=== PATIENT | female | born 1995 | race Hispanic/Latino ===

== ENCOUNTER 2024-10-09 09:04 | Emergency (ER) | payer OTHER, SELFPAY ==
[2024-10-09 09:21] VITALS: BP 119/62
[2024-10-09 09:33] VITALS: BMI 36.3
[2024-10-09 10:02] LABS: % Basophils 0.3 % (0-2); % Eosinophils 0.3 % (0-6); % Immature Granulocytes 0.3 % (0-0.5); % Lymphocytes 37.8 % (20.5-51.1); % Neutrophils 51.3 % (42.2-75.2); Absolute Lymphocytes 2.5 10^3/uL (1.2-3.4); Absolute Monocytes 0.7 10^3/uL (0.1-0.6); Absolute Neutrophils 3.3 10^3/uL (1.4-6.5); Hematocrit 40.9 % (37.0-47.0); Hemoglobin 13.9 g/dL (12.0-16.0); Mean Corpuscular Hgb 30.8 pg (27.0-31.0); Mean Corpuscular Volume 90.5 fL (81.0-99.0); Mean Platelet Volume 11.1 fL (7.4-10.4); Nucleated Red Blood Cells % 0 %; Platelet Count 275 10^3/uL (130-400); Red Blood Cell Count 4.52 10^6/uL (4.20-5.40); Red Cell Dist. Width 12.2 % (11.5-14.5); White Blood Cell Count 6.5 10^3/uL (4.8-10.8)
[2024-10-09 10:10] VITALS: BP 118/65
[2024-10-09 10:13] LABS: D-Dimer < 0.27 ug/mlFEU (0.00-0.50)
[2024-10-09 10:21] LABS: ALT (SGPT) 17 U/L (0-35); AST (SGOT) 17 U/L (14-36); Albumin 4.1 g/dl (3.5-5.0); Alkaline Phosphatase 49 U/L (38-126); Blood Urea Nitrogen 17 mg/dl (7-17); Calcium 9.8 mg/dl (8.4-10.2); Carbon Dioxide 28 mmol/L (22-30); Chloride 108 mmol/L (98-107); Estimated Creatinine Clearance 107 ml/min; Glucose 97 mg/dl (70-99); Potassium 4.5 mmol/L (3.5-5.1); Sodium 142 mmol/L (135-145); Total Bilirubin 0.4 mg/dl (0.2-1.3); Total Protein 7.5 g/dl (6.3-8.2); eGFR > 60.00
[2024-10-09 10:33] LABS: Troponin I < 0.012 ng/ml
--- NOTE | 2024-10-09 10:39 | ED.GENMED ---
History of Present Illness
General
Chief Complaint: Chest Pain
Time Seen by Provider: 10/09/24 09:23
History of Present Illness
History of Present Illness:
29-year-old female with prior history of SVT presenting to the emergency department for 1 week of chest pain and difficulty breathing. Patient reports left-sided chest pain, worse with exertion. She notes that she has been having on and off
symptoms for the past few years, ever since with her child, 2 years ago. She recently started following with cardiology. She notes that she had a stress test on September 16 that was abnormal. She is scheduled to get a CT scan in October. She
called her unhairing inspector because in the past week has been having left-sided chest pain and difficulty breathing, and was told to come specifically to [facility]. She is currently on Cardizem to 240 mg daily. She recently had her
control adjusted from estrogen-containing to progesterone only. Denies fever or cough. Denies abdominal pain or GI symptoms. Denies additional acute medical complaints
Phy Exam
Physical Exam
Physical Exam:
General: Well-appearing, no clinical signs of dehydration, nontoxic and in no acute distress
HEENT: protecting airway
Neck: appears supple
CV: Normal heart rate, regular rhythm
Resp: No accessory muscle use, no increased work of breathing
Abd: no distension
Extremities: No deformities, no swelling
Neuro: alert, no focal neurologic deficit
: deferred
Rectal: deferred
Psych: Normal affect
Skin: Intact
Scores
Heart Score for Chest Pain Patients
STEMI patient?: No
History: Slightly or Non-Suspicious
ECG: Nonspecific Repolarization
Age: </= 45 years
Risk Factors: No Risk Factors
Troponin: </= Normal Limit
Heart Score for Chest Pain Patients: 1
Heart Score Risk: 2.5% MACE over next 6 weeks
Course
Orders/Labs/Results
Orders:
Orders
10/09/24 09:05
ECG [Electrocardiogram (*1)] Urgent
Reason for Study: Chest Pain
EKG- Treatment ONCE
10/09/24 09:45
Test Result ONCE
10/09/24 09:49
Complete Blood Count/With Diff Urgent
Comprehensive Metabolic Panel Urgent
D-Dimer Urgent
HCG, Serum Qualitative Screen Urgent
NT-proBNP Urgent
TSH Reflex To Free T4 Urgent
Troponin I Urgent
10/09/24 11:24
Add On- LAB Routine
Tests Added?: TSH with reflex to free T4
10/09/24 11:51
Add On- LAB Routine
Tests Added?: proBNP
10/09/24 13:00
Troponin I Urgent
Abnormal Lab Results
10/09/24
09:49
MPV 11.1 H fL
(7.4-10.4)
Absolute Monos (auto) 0.7 H 10^3/uL
(0.1-0.6)
Monocytes % 10.0 H %
(1.7-9.3)
Chloride 108 H mmol/L
(98-107)
10/09/24 09:49
10/09/24 09:49
Vital Signs
Initial and Last Documented VS:
Initial Vital Signs
Pulse Resp
88 19
10/09/24 09:20 10/09/24 09:20
Last Documented Vital Signs
Temp Pulse Resp BP Pulse Ox
98.3 F 78 18 112/76 98
10/09/24 10:00 10/09/24 14:00 10/09/24 14:00 10/09/24 14:00 10/09/24 11:00
MDM/Problems Addressed
MDM/Problems Addressed:
29-year-old female with history of asthma presenting for left sided chest pain and difficulty breathing for the past week. Vital signs on arrival are normal.
On exam, patient is resting comfortably, no acute distress or discomfort. Unremarkable cardiac and pulmonary exam. However, EKG reviewed, abnormal with diffuse T wave inversion. Patient without significant risk factors for CAD, however does
mention outpatient stress test that was abnormal on September 16. Unable to see results. Patient has been following with physician through stacie Muhammad, however is associated with [place] [facility]. PE is a consideration, recent adjustment of
control pills, was previously on estrogen containing product. Will send troponin, D-dimer. Will consult with cardiology.
1045 - Labs unremarkable. Cardiology made aware. Patient otherwise hemodynamically stable.
1345 -cardiology to bedside, feels symptoms more consistent with pericarditis. Feel stable for discharge, will trial patient on colchicine. They are going to try and move up patient's CT. Patient in agreement with plan. Return precautions
discussed and patient verbalized understanding
*EKG
Interpreted by ED Provider?: Yes
EKG Intrepretation Date: 10/09/24
EKG Intrepretation Time: 10:48
Interpretation: normal
Comparison EKG: no comparison EKG present
Heart Rate: 83
Rate: normal
Rhythm: sinus
[place]: normal axis
Interval: normal interval
QRS Pattern: normal QRS
Ischemia: T-wave inversion
*Critical Care Note
Total Time (30-74mins, 75-104mins- exclusive of procedures): Not Applicable
ED Attending Note
-
Portions of this chart may have been created with voice recognition software.� Occasional wrong word or��sound alike� substitutions may have occurred due to the inherent limitations of voice recognition software.
Discharge Plan
Departure
Patient Disposition: Home (Routine Discharge)
Date of Disposition: 10/09/24
Time of Disposition: 14:01
Patient with high blood pressure during this ER visit?: No
Condition: Good
Discharge Problem:
Chest pain
Prescriptions:
New
colchicine 0.6 mg tablet
0.6 mg PO BID Qty: 60 2RF
Referrals:
Shaila Cheema DO [Family Provider]
Cedric Limon MD [Active, Internal Medicine]
Stand Alone Forms: Return to Work
Activity Restrictions/Additional Instructions:
You were seen in the emergency department for chest pain
You were found to have reassuring laboratory analysis. You were seen by cardiology, recommending colchicine for pain. Please follow-up with your unhairing inspector.
Please follow-up closely with your primary care physician.
Return to the emergency department for any worsening of your symptoms, or any development of chest pain, difficulty breathing, abdominal pain with persistent vomiting and inability to tolerate food or liquid by mouth (concern for dehydration),
weakness, headache or confusion, fever greater than 100.4, or any additional symptoms that are concerning to you.
Thank you for choosing [facility].
Colchicine can cause diarrhea. Please call your doctor if GI symptoms. Please breastfeed right before taking if possible.
Interventions
Interventions:
*Risk Screen - Suicide Last Done: 10/09/24 09:08
*General Assessment Last Done: 10/09/24 09:08
*Neglect/Abuse Screening Last Done: 10/09/24 10:12
*ED- Fall Risk Assessment Last Done: 10/09/24 10:48
*ED COVID-19 Vaccine History Last Done: 10/09/24 09:40
*Nursing Disposition Last Done: 10/09/24 14:27
ED- Cardiac Assessment Last Done: 10/09/24 09:40
Discharge Date and Time
Discharge Date/Time: 10/09/24 14:32
Print Language: TELUGU
[2024-10-09 10:42] LABS: HCG, Serum Qualitative Screen Negative
[2024-10-09 11:00] VITALS: BP 110/65
[2024-10-09 12:00] VITALS: BP 103/59
--- NOTE | 2024-10-09 12:03 | CON.CAR ---
Addendum entered and electronically signed by Randy Moreno MD 10/09/24 14:02:
29-year-old woman with history of tachycardia/palpitations/SVT by ambulatory monitor who presents now with increasing dyspnea on exertion and chest discomfort. She has an underlying history of asthma but symptoms not improved with an increase in
Advair. Currently on diltiazem 240 mg daily. Symptoms of chest discomfort can occur with exertion but also have what sounds like a pleuritic component, worse supine and better sitting up. She has a 1-year-old and is still nursing, with 3 other
children, lives at home in [place] with her fianc� and previously she was in home care. A coronary artery CTA is scheduled for October 22. She called Dr. Limon's office earlier today and was sent for evaluation. She has longstanding
inferolateral T wave inversions. An echocardiogram and stress echo were recently unremarkable, with normal augmentation wall motion with exercise.
Rest of history as below, independently confirmed by me.
103/59, pulse 82, afebrile, pleasant, head neck exam unremarkable lungs clear, regular rate and rhythm without obvious murmurs abdomen benign extremities without edema
EKG with inferolateral ST sagging and T wave inversions, cannot exclude septal NV
D-dimer is negative, BUN and creatinine are 17 and 0.8, proBNP is less than 20 initial troponin is negative, beta-hCG is negative, she is on control pills
Agree with findings, assessments and recommendations of Yocasta Longoria.
Impression:
See below as per Yocasta Longoria
Plan:
She presents with symptoms of chest discomfort and shortness of breath. Some of her symptoms could be consistent with a cardiac etiology. It is highly unlikely that she has obstructive CAD, but entities such as ANOCA could be considered. With a
negative D-dimer, pulmonary embolus is unlikely.
Some of her symptoms could be consistent with pericarditis. We will recommend an empiric trial of colchicine which is not contraindicated in a breast-feeding woman.
Her SVT seems to be a secondary issue at this time, will defer to Dr. Limon regarding management.
.
It would be best to avoid cardiac catheterization. We will try to facilitate her CT coronary angiogram.
If no clinical improvement with colchicine, and if CTA of coronaries is negative, I might consider a myocardial PET/CT looking for reduction in myocardial blood flow reserve which would be consistent with a diagnosis of ANOCA.
Discussed with Dr Bray, Dr Limon and patient
Original Note:
Consultation
Consultation Request
Date/Time Consultation Performed: 10/09/24
Requesting Provider: Dr. Bray
Performing Provider: Yocasta Longoria PA-C for Dr. AMERICA Moreno
Reason for Consultation: CP, SOB
Medical History
-
Chief Complaint: CP, SOB
History of Present Illness:
Patient is a 29 yo F with PMH of palpitations/tachycardia which she noted started during her last (patient gave to a girl 09/18/23). She was evaluated by [facility] and ordered a 2 week hall monitor which revealed 2 episodes of SVT. She
reports episodes are random in occurrence and at times lasts seconds however other times lasts 10 minutes. She reports at times associated with this she 'sees colors' and lies down for a bit until the symptoms go away. She was started on diltiazem
and this was uptitrated at last office visit with Dr. Limon to 240mg daily. She reports with this change she has noted less episodes but not resolved. She was to be evaluated at [facility] location for SVT ablation. She then over the last several weeks
noted chest tightness, particularly with deep breathing feeling as though 'I can't get enough air in.' She reports this comes and goes however is worse with exertion or lying flat, relived by sitting up. Also reports some intermittent B/L foot
swelling. She had echo 09/2024 with preserved EF. She then underwent stress echo 09/16/24 which was read as abnormal and options were discussed with patient for further evaluation including coronary CT vs cath. She is scheduled for coronary CT on
10/22/24 at . She continued with symptoms and called her donor relations manager's office who sent her to [facility] ER for further evaluation. ddimer and trop negative x1. EKG with inferior and lateral T wave inversions, slightly more pronounced compared to prior.
Cardiology consulted for evaluation. She continues to breastfeed. She was also seen by her OB as she has been having abnormal menstrual cycles and had bloodwork which all reportedly 'looked ok.' Denies ETOH, tobacco, or illicit drug use. She is on
BCP.
PMH:
Abnormal stress echo 09/16/24
SVT
Obesity
Past Medical History
Past Medical History: Other (in HPI)
Social History
Tobacco: Non-Smoker
Alcohol: None
Drug: None
Personal:
Living: With Family
Employment: Not Employed
Family History
Family History: Hypertension
Allergies / Home Medications
Allergy/AdvReac Type Severity Reaction Status Date / Time
erythromycin base Allergy Unknown Verified 10/09/24 09:10
metronidazole (From Flagyl) Allergy Unknown Verified 10/09/24 09:10
naproxen Allergy Unknown Verified 10/09/24 09:10
Review of Systems
-
History Source: Patient
All other systems: Negative unless noted
Physical Exam
Vital Signs
Temp Pulse Resp BP Pulse Ox
98.3 F 78 14 118/65 98
10/09/24 10:00 10/09/24 10:10 10/09/24 10:10 10/09/24 10:10 10/09/24 10:10
Lab Results
10/09/24 09:49
10/09/24 09:49
Troponin I < 0.012 ng/ml 10/09/24 09:49
Physical Exam
General: No Apparent Distress and Comfortable
HEENT: Normocephalic, Anicteric and Moist Mucous Membranes
Respiratory: Clear and Non Labored Respirations
Cardiac: S1/S2 and Regular Rhythm
GI: Soft, Non Tender, Non Distended and Normal Bowel Sounds
Musculoskeletal: No Clubbing, No Cyanosis and No Edema
Skin: Warm and Dry
Neuro: AO x 3
Impression / Plan
-
Primary Equipment Cleaner: Dr. Cedric Limon of [facility]
Assessment:
Presentation with chest tightness, SOB
Negative troponin
Negative DDimer
Abnormal stress echo 09/16/24
Abnormal EKG
SVT
Obesity
ECHO 09/16/24: EF 60%, normal LV and RV function, normal chamber sizes, no significant valvular disease noted
Stress echo 09/16/2024: Positive exercise tolerance test, with symptoms possibly suggestive of ischemia, EKG criteria for diagnosing ischemia met, resting ST/T abnormalities with standing and hyperventilation which may diminish the specificity of EKG
findings, no arrhythmias, systolic augmentation of visualized segments of low LV generally suggestive of absence of ischemia, EF 60%
Plan:
- Patient presents with continued symptoms of chest discomfort/tightness, shortness of breath, as well as continued symptomatic SVT.
- She underwent recent echo and stress echo as above. She is scheduled through her donor relations manager for cardiac CTA on 10/22/2024.
- Given her lack of significant risk factors as well as young age, concern for coronary disease relatively low, however EKG is abnormal with lateral and inferior T wave inversions and recent stress test as above
- trop negative x1, repeat
- ddimer negative
- HCG negative
- check TSH and proBNP
- discussed cardiac catheterization as option, although low suspicion for CAD. may consider treatment for pericarditis given pleuritic and positional components.
- d/w ER physician via TT
Data Reviewed
-
EKG: Tracing Personally Visualized and interpreted
Medical Tests (Nuc Med, Echo etc): Report Reviewed by me
Labs: Labs Reviewed by me
Old Records: Reviewed
[2024-10-09 13:00] VITALS: BP 95/60
[2024-10-09 13:45] LABS: NT-proBNP < 20.0 pg/ml
[2024-10-09 13:58] LABS: Troponin I < 0.012 ng/ml
[2024-10-09 14:00] VITALS: BP 112/76
[2024-10-09 15:26] LABS: TSH Reflex To Free T4 0.85 uIU/ml (0.47-4.68)
== END 2024-10-09 14:32 | disposition home or self-care (01) ==
LOC: EMR 09:04
PROVIDERS: Physician Assistant; EMERGENCY PHYSICIAN Student in an Organized Health Care Education/Training Program; FAMILY PHYSICIAN Family Medicine; OTHER PHYSICIAN Internal Medicine Cardiovascular Disease
DX: R07.89 Other chest pain (principal); R06.00 Dyspnea, unspecified; M79.89 Other specified soft tissue disorders; I47.10 Supraventricular tachycardia, unspecified; J45.909 Unspecified asthma, uncomplicated; E66.9 Obesity, unspecified; Z79.899 Other long term (current) drug therapy; Z88.6 Allergy status to analgesic agent; Z88.1 Allergy status to other antibiotic agents
CPT/HCPCS: 99283; 80053; 83880; 84443; 84484; 84703; 85025; 85379; 93005

== ENCOUNTER → 2024-10-22 09:45 | Outpatient (REF) | payer OTHER, SELFPAY | LOC: RAD 09:45 | PROVIDERS: ATTENDING PHYSICIAN Internal Medicine Cardiovascular Disease | DX: I47.10 Supraventricular tachycardia, unspecified (principal); R00.0 Tachycardia, unspecified; R00.2 Palpitations; R07.9 Chest pain, unspecified; R06.09 Other forms of dyspnea; Z82.49 Family history of ischemic heart disease and other diseases of the circulatory system; R94.39 Abnormal result of other cardiovascular function study; R07.89 Other chest pain | CPT/HCPCS: 75574; Q9967 ==